=== PATIENT | male | born 1985 | race African-American/Black ===

== ENCOUNTER 2024-06-05 11:32 | Emergency (ER) | payer OTHER ==
[2024-06-05 11:44] VITALS: BMI 25.8
[2024-06-05 13:02] VITALS: BP 145/93; PULSE 91; RESP 16; TEMP 98.1
[2024-06-05] MEDS ORDERED: MAG HYDROX/AL HYDROX/SIMETH 30 ML UNIT-DOSE CUP ONE (13:12)
[2024-06-05] MEDS: MAG HYDROX/AL HYDROX/SIMETH 30 ML UNIT-DOSE CUP PO ONE (13:14)
== END 2024-06-05 13:56 | disposition home or self-care (01) ==
LOC: JER 11:32
DX: M79.674 Pain in right toe(s) (principal); M79.675 Pain in left toe(s); B35.1 Tinea unguium
CPT/HCPCS: 99283-25